=== PATIENT | female | born 1980 | race Two or more races ===

== ENCOUNTER 2019-12-28 14:34 | Emergency (ER) | payer MEDICAID ==
--- NOTE | 2019-12-28 15:17 | EDM.PDOC ---
ED HPI GENERAL MEDICAL PROBLEM - General Chief Complaint: Respiratory Problem Stated Complaint: COUGH,FEVER,VOMITING Time Seen by Provider: 12/28/19 14:55 Source of Information: Reports: Patient History Limitations: Reports: No Limitations - History of Present Illness INITIAL COMMENTS - FREE TEXT/NARRATIVE: 39 yo female presents to ER with nasal congestion and cough. She was around her nephew that has like symptoms. Facial pressure and Headache. fatigue and body aches. generally healthy. social smoker. 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 Denies: Throat Pain Respiratory: Reports: Cough. Denies: Shortness of Breath, Wheezing Cardiovascular: Denies: Chest Pain, Palpitations GI/Abdominal: Denies: Abdominal Pain Skin: Denies: Rash ED EXAM, GENERAL - Physical Exam Exam: See Below Exam Limited By: No Limitations General Appearance: Alert, WD/WN, No Apparent Distress Ears: Normal External Exam, Normal Canal, Normal TMs Nose: Normal Inspection, Normal Mucosa, No Blood Throat/Mouth: Normal Inspection, Normal Lips, Normal Teeth, Normal Gums Head: Atraumatic, Normocephalic Neck: Normal Inspection, Supple, Non-Tender, Full Range of Motion Respiratory/Chest: No Respiratory Distress, Lungs Clear, Normal Breath Sounds, No Accessory Muscle Use, Chest Non-Tender. No: Crackles, Rhonchi, Wheezing Cardiovascular: No Murmur, Tachycardia GI/Abdominal: Normal Bowel Sounds, Soft, Non-Tender Neurological: Alert, Oriented Psychiatric: Normal Affect, Normal Mood Skin Exam: Warm, Dry, Intact. No: Rash Course - Vital Signs Last Recorded V/S: Last Vital Signs Temp 36.3 C 12/28/19 14:54 Pulse 130 H 12/28/19 14:54 Resp 18 12/28/19 14:54 BP 120/72 12/28/19 14:54 Pulse Ox 96 12/28/19 14:54 Departure - Departure Time of Disposition: 15:17 Disposition: Home, Self-Care 01 Condition: Good Clinical Impression: Sinusitis, acute Qualifiers: Sinusitis location: unspecified location Recurrence: non-recurrent Qualified Code(s): J01.90 - Acute sinusitis, unspecified - Discharge Information *PRESCRIPTION DRUG MONITORING PROGRAM REVIEWED*: Not Applicable *COPY OF PRESCRIPTION DRUG MONITORING REPORT IN PATIENT TAMI: Not Applicable Instructions: Sinusitis, Adult Referrals: PCP,None [Primary Care Provider] - Additional Instructions: Augmentin 500 twice daily for 5 days increase fluid intake with goal of 100 ounces per day rest Sepsis Event Note (ED) - Evaluation Sepsis Screening Result: No Definite Risk - Focused Exam Vital Signs: Vital Signs Temp Pulse Resp BP Pulse Ox 12/28/19 14:54 36.3 C 130 H 18 120/72 96 12/28/19 14:48 36.3 C 130 H 18 120/72 96
== END 2019-12-28 15:35 | disposition home or self-care (01) ==
LOC: JP.ED 14:34
DX: J01.90 Acute sinusitis, unspecified (principal)
CPT/HCPCS: 99283

== ENCOUNTER 2020-05-23 22:39 | Emergency (ER) | payer OTHER, MEDICAID ==
[2020-05-23] MEDS ORDERED: Ibuprofen 600 MG Tab PO ONE (23:48)
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
== END 2020-05-24 00:40 | disposition home or self-care (01) ==
LOC: JP.ED 22:39
DX: S40.022A Contusion of left upper arm, initial encounter (principal); F17.210 Nicotine dependence, cigarettes, uncomplicated; V49.9XXA Car occupant (driver) (passenger) injured in unspecified traffic accident, initial encounter
CPT/HCPCS: 73030; 73080; 99284; A9270